=== PATIENT | female | born 1965 | race Caucasian/White ===

== ENCOUNTER 2021-04-17 13:44 | Emergency (ER) | payer BC ==
[~2021-04-17] VITALS: Ht 165.1 cm; Wt 47.6 kg
[2021-04-17 14:27] LABS: ABSOLUTE NEUTROPHILS 3.9 thou/uL (1.4-8.2); BASOPHILS 0.9 % (0.0-2.0); EOSINOPHILS 2.8 % (0.0-3.0); HEMATOCRIT 34.1 % (37.0-47.0); HEMOGLOBIN 11.7 gm/dL (12.0-15.0); LYMPHOCYTES 27.1 % (24.0-44.0); MCH 34.4 pg (26.0-34.0); MCHC 34.2 g/dL (28.0-37.0); MCV 100.6 fL (80.0-100.0); MONOCYTES 6.5 % (1.0-8.0); PLATELET COUNT 272 thou/uL (150-400); POLYS 62.7 % (36.0-66.0); RBC 3.39 mil/uL (4.20-5.00); RDW 11.9 % (10.5-14.5); WBC 6.2 thou/uL (4.0-11.0)
[2021-04-17 14:31] LABS: CALCIUM 9.3 mg/dL (8.5-10.1); CREATININE 0.9 mg/dL (0.6-1.0); POTASSIUM 3.8 mmol/L (3.5-5.1)
[2021-04-17 14:37] LABS: TOTAL BILIRUBIN 0.3 mg/dL (0.2-1.0); TOTAL PROTEIN 6.9 g/dL (6.4-8.2)
[2021-04-17 15:59] LABS: URINE BILIRUBIN NEGATIVE (Negative); URINE BLOOD TRACE (Negative); URINE CLARITY CLEAR; URINE COLOR YELLOW; URINE GLUCOSE-RANDOM* NEGATIVE (Negative); URINE KETONES NEGATIVE (Negative); URINE NITRITE-REFLEX NEGATIVE (Negative); URINE PROTEIN (DIPSTICK) NEGATIVE (Negative); URINE SPECIFIC GRAVITY < 1.005 (1.005-1.035); URINE UROBILINOGEN 0.2 E.U./dl (0.2-1.0)
[2021-04-17 16:00] LABS: URINE LEUKOCYTES-REFLEX 2+ (Negative)
[2021-04-17 16:03] VITALS: BP 121/61
[2021-04-17 16:18] LABS: BACTERIA-REFLEX None Seen /HPF (None Seen); CASTS None Seen /LPF (None Seen); SQUAMOUS 0-3 Few /LPF (0-3); URINE RBC 1-2 Rare /HPF (NONE SEEN); URINE WBC-REFLEX 0-5 Rare /HPF (0-5)
[2021-04-17 16:19] LABS: CRYSTALS None Seen /LPF (None Seen)
--- NOTE | 2021-04-18 10:23 | EKG ---
[facility] [address] [place] [address] ELECTROCARDIOGRAM REPORT Name: ERNESTO DÍAZ Room #: [facility]P [facility] [id number] Admission: 04/17/21 Attend Phys: Discharge: 04/17/21 Date of : 67 Report #: [id number] [facility] ED Test Date: 2021-04-17 Test Time: 14:48:25 Pat Name: ERNESTO DÍAZ Department: Room: Gender: F Laboratory Associate: jaiden : 1965 Requested By: Romeo Castillo Order Number: [id number] MD: Dawit Mendoza Measurements Intervals [place] Rate: 89 P: 78 OR: 173 QRS: 99 QRSD: 116 T: 48 QT: 400 QTc: 487 Interpretive Statements Sinus rhythm Biatrial enlargement Right ventricular conduction delay Baseline wander in lead(s) V1 No previous ECG available for comparison Electronically Signed On 04-18-2021 10:22:50 [employer] by Dawit Mendoza [email or web address] <ELECTRONICALLY SIGNED> By: Dawit Menodza MD, [facility] 04/18/21 1022 1448 1448 Dawit Mendoza MD, FACC /EPI
== END 2021-04-17 16:04 | disposition home or self-care (01) ==
LOC: ER 13:44
PROVIDERS: Physician Assistant
DX: S06.0X0A Concussion without loss of consciousness, initial encounter (principal); S02.5XXA Fracture of tooth (traumatic), initial encounter for closed fracture; S50.01XA Contusion of right elbow, initial encounter; S00.81XA Abrasion of other part of head, initial encounter; W01.198A Fall on same level from slipping, tripping and stumbling with subsequent striking against other object, initial encounter; Y93.89 Activity, other specified; Y92.89 Other specified places as the place of occurrence of the external cause; Y99.8 Other external cause status